=== PATIENT | female | born 1950 | race Caucasian/White ===

== ENCOUNTER 2023-03-05 11:45 | Outpatient (RCR) | payer MEDICARE, OTHER, SELFPAY | END 2023-04-16 14:51 | disposition home or self-care (01) | PROVIDERS: PCP Family Medicine; Visit Provider Family Medicine | DX: M25.561 Pain in right knee (principal); Z51.89 Encounter for other specified aftercare | CPT/HCPCS: 97110; 97112; 97161 ==